=== PATIENT | male | born 1975 | race Caucasian/White ===

== ENCOUNTER 2016-08-04 13:32 | Emergency (ER) | payer OTHER ==
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
[2016-08-04 16:24] VITALS: BP 119/71
== END 2016-08-04 16:15 | disposition home or self-care (01) ==
LOC: ER 13:32
PROC: 2W3FX1Z Immobilization of Left Hand using Splint (ICD-10-PCS; principal; 2016-08-04)
DX: S63.502A Unspecified sprain of left wrist, initial encounter (principal); S16.1XXA Strain of muscle, fascia and tendon at neck level, initial encounter; M25.532 Pain in left wrist; F17.210 Nicotine dependence, cigarettes, uncomplicated; M54.2 Cervicalgia; M54.6 Pain in thoracic spine; V89.2XXA Person injured in unspecified motor-vehicle accident, traffic, initial encounter
CPT/HCPCS: 99283; L3984